=== PATIENT | female | born 1980 | race Caucasian/White ===

== ENCOUNTER 2021-12-25 17:24 | Outpatient (REF) | payer OTHER, SELFPAY ==
[2021-12-26 13:30] LABS: H Pylori Breath Test Positive (Negative)
== END 2021-12-25 17:25 | disposition home or self-care (01) ==
LOC: HO.LNP 17:24
PROVIDERS: Visit Provider Physician Assistant
DX: Z01.818 Encounter for other preprocedural examination (principal); E66.01 Morbid (severe) obesity due to excess calories
CPT/HCPCS: 83013

== ENCOUNTER 2022-01-13 07:51 | Outpatient (REF) | payer OTHER, SELFPAY ==
--- NOTE | ~2022-01-13 | XR_ITS ---
EXAMINATION: XR CHEST CLINICAL INFORMATION: Morbid obesity. COMPARISON: None TECHNIQUE: 2 views of the chest were obtained. FINDINGS: No significant abnormality is noted involving the heart, lungs, mediastinum, bony thorax or soft tissues. XR/XR chest 2V IMPRESSION: Unremarkable examination.
--- NOTE | 2022-01-13 08:09 | ECG_ITS ---
Test Reason : MORBID OBESITY Blood Pressure : / mmHG Vent. Rate : 064 BPM Atrial Rate : 064 BPM P-R Int : 156 ms QRS Dur : 092 ms QT Int : 430 ms P-R-T Axes : 054 018 002 degrees QTc Int : 443 ms Normal sinus rhythm Normal ECG No previous ECGs available Referred By: Pam Carr Electronically Signed By:ASHLEY PARIKH MD
[2022-01-13 08:53] LABS: Basophils Percent Auto 0.3 % (0-2); Eosinophils Absolute Auto 0.1 X10*3/uL (0.0-0.4); Eosinophils Percent Auto 0.8 % (0-4); Hematocrit 39.8 % (37.0-47.0); Hemoglobin 12.8 g/dl (12.0-16.0); Imm Gran Abs Auto 0.03 X10*3/uL (0.00-0.03); Imm Gran Pct Auto 0.5 % (0.0-0.4); Lymphocytes Absolute Auto 2.6 X10*3/uL (1.2-4.9); Lymphocytes Percent Auto 43.7 % (20-40); MANUAL DIFF FLAG SCAN; Mean Corpuscular HGB Conc 32.2 g/dl (31.0-35.0); Mean Corpuscular Hemoglobin 27.1 pg (27.0-33.0); Mean Corpuscular Volume 84.3 fL (80.0-98.0); Monocytes Absolute Auto 0.5 X10*3/uL (0.1-1.2); Monocytes Percent Auto 7.7 % (2-11); Neutrophils Absolute Auto 2.8 x10*3/uL (2.0-8.3); PLT CLUMP 1; Red Blood Count 4.72 X10*6/uL (4.20-5.50); Red Cell Distribution Width 13.2 % (11.0-16.0); SCAN SMEAR FLAG 1
[2022-01-13 08:57] LABS: Estimated Average Glucose 120 mg/dL; Hemoglobin A1c % 5.8 %
[2022-01-13 09:16] LABS: Platelet Count 209 X10*3/uL (160-400); SLIDE REVIEW VERIFIED
[2022-01-13 09:42] LABS: Alanine Aminotransferase 33 U/L (0-31); Albumin Level 4.5 g/dL (3.5-5.0); Alkaline Phosphatase 42 U/L (39-117); Anion Gap 12 (12-20); Aspartate Amino Transferase 26 U/L (5-31); Bilirubin Total 0.3 mg/dL (0.0-1.0); Blood Urea Nitrogen 14 mg/dL (9-16); C Reactive Protein 0.28 mg/dL (< or = 0.50); Calcium 9.3 mg/dL (8.4-10.2); Carbon Dioxide 26 mmol/L (22-29); Chloride 106 mmol/L (96-108); Cholesterol 157 mg/dL; Estimated Glomerular Filt Rate > 60; Ferritin 62 ng/mL (10-250); Glucose Random 95 mg/dL (60-115); HDL Cholesterol 29 mg/dL; Insulin 18 uU/mL (2-29); Iron 92 mcg/dL (30-160); LDL Cholesterol Calculated 102 mg/dl; Percent Iron Saturation 30 % (15-50); Potassium 4.5 mmol/L (3.3-5.1); Sodium 139 mmol/L (135-145); TSH reflex Free T4 0.86 uIU/mL (0.32-4.0); Total Iron Binding Capacity 303 mcg/dL (228-428); Total Protein 7.3 g/dL (6.5-8.0); Triglycerides 132 mg/dL; Unsaturated Iron Binding 211 ug/dL
[2022-01-13 09:52] LABS: Folate 14.5 ng/mL (> or = 4.0); Vitamin B12 573 pg/mL (200-900)
[2022-01-14 09:48] LABS: Calcium (PTHI) 9.3 mg/dL (8.6-10.2); PTHI 51 pg/mL (16-77)
[2022-01-17 05:59] LABS: Zinc 100 mcg/dL (60-130)
[2022-01-17 14:43] LABS: Vitamin A 38 mcg/dL (38-98)
[2022-01-18 12:54] LABS: Vitamin B1 <6 nmol/L (8-30)
== END 2022-01-13 07:52 | disposition home or self-care (01) ==
LOC: HO.XRAY 07:51
PROVIDERS: Visit Provider Physician Assistant
DX: Z01.818 Encounter for other preprocedural examination (principal); E66.01 Morbid (severe) obesity due to excess calories
CPT/HCPCS: 36415; 71046; 80053; 80061; 82306; 82607; 82728; 82746; 83036; 83525; 83540; 83970; 84425; 84443; 84590; 84630; 85025; 86140; 93005

== ENCOUNTER 2022-01-16 15:01 | Outpatient (REF) | payer OTHER, SELFPAY ==
[2022-01-17 15:27] LABS: H Pylori Breath Test Negative (Negative)
== END 2022-01-16 15:02 | disposition home or self-care (01) ==
LOC: HO.LNP 15:01
PROVIDERS: Visit Provider Physician Assistant Surgical
DX: E66.9 Obesity, unspecified (principal)
CPT/HCPCS: 83013

== ENCOUNTER → 2022-01-21 13:20 | Outpatient (BNVA) | payer OTHER, SELFPAY | PROVIDERS: Visit Provider Dietitian, Registered | DX: E66.01 Morbid (severe) obesity due to excess calories (principal) | CPT/HCPCS: 97802 ==

== ENCOUNTER → 2022-01-22 10:30 | Outpatient (BNVA) | payer OTHER, SELFPAY | PROVIDERS: Referring Provider Physician Assistant; Visit Provider Counselor Mental Health | DX: F33.0 Major depressive disorder, recurrent, mild (principal); E66.01 Morbid (severe) obesity due to excess calories | CPT/HCPCS: 90791 ==

== ENCOUNTER → 2022-02-05 10:30 | Outpatient (BNVA) | payer OTHER, SELFPAY | PROVIDERS: Visit Provider Physician Assistant | DX: I10 Essential (primary) hypertension (principal) ==

== ENCOUNTER 2022-02-12 08:45 | Outpatient (REF) | payer OTHER, SELFPAY ==
--- NOTE | ~2022-02-12 | FL_ITS ---
EXAMINATION: XR FLUOROSCOPY UPPER GI WITH AIR CLINICAL INFORMATION: Morbid/severe obesity due to excess calories. COMPARISON: None TECHNIQUE: Routine upper GI air-contrast study was performed in upright and lying position. FINDINGS: Following oral administration of thick barium and effervescent granules, there is normal propagation of bolus from the oral cavity through the pharynx, esophagus into stomach without any evidence of obstruction, narrowing or stricture. On placing patient supine and prone, the course, caliber and peristalsis of the stomach, duodenal bulb and the sweep is normal. The mucosal pattern of the stomach, duodenum bulb and the sweep is normal. FLUOROSCOPY TIME: 1.5 minutes DOSE AREA PRODUCT: 57.341 uGy-m2 (microgray-meter squared) FL/FL upper GI w air IMPRESSION: Unremarkable upper GI air-contrast study.
--- NOTE | ~2022-02-12 | US_ITS ---
EXAMINATION: US COMPLETE ABDOMEN WITH LIVER ELASTOGRAPHY CLINICAL INFORMATION: Morbid obesity. COMPARISON: None. TECHNIQUE: Real-time imaging of the abdominal viscera. Noninvasive ultrasound liver fibrosis assessment is performed using Britta ElastPQ point quantification shear wave elastography (2D-SWE) with a C5-2 MHz transducer. Multiple elastography samples are obtained. FINDINGS: PANCREAS: The visualized pancreatic head and body are normal in appearance. The tail of the pancreas is obscured from visualization by the overlying bowel gas. ABDOMINAL AORTA: The proximal, middle, and distal aortic segments are normal in caliber. INFERIOR VENA CAVA: Visualized portions are normal. LIVER: The liver demonstrates normal size, contour and increased echogenicity with fatty sparing adjacent to gallbladder. No focal lesion or intrahepatic biliary duct dilatation. The right lobe measures 18.5 cm in length. The left lobe measures 11.3 cm in length. Portal flow is hepatopedal. Shear wave liver elastography median stiffness is 1.79 m/s (reference: normal median stiffness is 1.3 m/s or less). IQR/median stiffness to assess sampling precision is 0.1 (reference: good quality data set is IQR/median stiffness of 0.15 or less). GALLBLADDER: Normal. The gallbladder is physiologically distended without evidence of stones, sludge, polyps, wall thickening or pericholecystic fluid. COMMON BILE DUCT: Normal in caliber measuring 0.4 cm in diameter. RIGHT KIDNEY: Normal. No hydronephrosis. No renal calculi or focal parenchymal lesions. The kidney measures 9.9 cm in maximum dimension. LEFT KIDNEY: There are echogenic calcified vessels. No hydronephrosis. No renal calculi or focal parenchymal lesions. The kidney measures 12.0 cm in maximum dimension. SPLEEN: Normal. The spleen measures 10.4 cm in maximum dimension. FREE FLUID: None. US/US abdomen comp w elastography IMPRESSION: 1. Hepatic steatosis with focal fatty sparing adjacent to gallbladder. 2. Liver elastography: Median liver stiffness measures 1.79 corresponding to cACLD (suggestive). REFERENCE: Society of Radiologists in Ultrasound Liver Stiffness Thresholds (2020): LIVER STIFFNESS THRESHOLDS: *Liver Stiffness equal or less than 1.3 m/s: High probability of being normal. *Liver Stiffness less than 1.7 m/s: In the absence of other known clinical signs, rules out compensated advanced chronic liver disease. *Liver Stiffness 1.7-2.1 m/s: Suggestive of compensated advanced chronic liver disease but need further test for confirmation. *Liver Stiffness over 2.1 m/s: Rules in compensated advanced chronic liver disease. *Liver Stiffness over 2.4 m/s: Suggestive of clinically significant portal hypertension. QUALITY OF DATA SET: *IQR/Median value equal or less than 0.15 implies a quality data set. *IQR/Median value over 0.15 implies a poor quality data set. SIGNIFICANT CHANGE FROM PRIOR EXAM: Significant change if liver stiffness measurement is 10% or greater from prior exam. OTHER CONSIDERATIONS: The stage of liver fibrosis may be overestimated in the setting of acute hepatitis, liver inflammation, elevated liver function tests, hepatic vascular congestion, obstructive cholestasis, non-fasting state, and infiltrative diseases such as amyloidosis and lymphoma. In some patients with NAFLD, the liver stiffness thresholds for compensated advanced chronic liver disease may be lower. In causes other than viral hepatitis and NAFLD, liver stiffness thresholds are not well established.
== END 2022-02-12 08:46 | disposition home or self-care (01) ==
LOC: HO.US 08:45
PROVIDERS: Visit Provider Physician Assistant
DX: Z01.818 Encounter for other preprocedural examination (principal); E66.01 Morbid (severe) obesity due to excess calories
CPT/HCPCS: 74246; 76705; 76981

== ENCOUNTER → 2022-02-26 11:15 | Outpatient (BNVA) | payer OTHER, SELFPAY | PROVIDERS: Visit Provider Counselor Mental Health | DX: F33.0 Major depressive disorder, recurrent, mild (principal); E66.01 Morbid (severe) obesity due to excess calories | CPT/HCPCS: 90832 ==

== ENCOUNTER → 2022-03-03 10:30 | Outpatient (BNVA) | payer OTHER, SELFPAY | PROVIDERS: Visit Provider Physician Assistant | DX: E66.01 Morbid (severe) obesity due to excess calories (principal) ==

== ENCOUNTER → 2022-03-14 07:56 | Outpatient (BNVA) | payer OTHER, SELFPAY | PROVIDERS: Visit Provider Physician Assistant Surgical | DX: Z13.89 Encounter for screening for other disorder (principal) ==

== ENCOUNTER → 2022-03-20 13:58 | Outpatient (BNVA) | payer OTHER, SELFPAY | PROVIDERS: Visit Provider Surgery | DX: Z13.89 Encounter for screening for other disorder (principal) ==

== ENCOUNTER → 2022-03-27 15:30 | Outpatient (BNVA) | payer OTHER, SELFPAY | PROVIDERS: Visit Provider Physician Assistant | DX: Z13.89 Encounter for screening for other disorder (principal) ==

== ENCOUNTER → 2022-03-28 12:43 | Outpatient (BNVA) | payer OTHER, SELFPAY | PROVIDERS: Visit Provider Surgery | DX: Z13.89 Encounter for screening for other disorder (principal) ==

== ENCOUNTER → 2022-04-01 08:06 | Outpatient (BNVA) | payer OTHER, SELFPAY | PROVIDERS: Visit Provider Surgery | DX: Z13.89 Encounter for screening for other disorder (principal) ==

== ENCOUNTER 2022-04-09 05:53 | Day surgery (SDC) | payer OTHER, SELFPAY ==
[2022-04-03 11:22] VITALS: BMI 48.8
[2022-04-04 07:35] LABS: MANUAL DIFF FLAG NO
[2022-04-04 07:54] LABS: Basophils Percent Auto 0.5 % (0-2); Eosinophils Absolute Auto 0.1 X10*3/uL (0.0-0.4); Eosinophils Percent Auto 0.9 % (0-4); Hematocrit 40.9 % (37.0-47.0); Hemoglobin 13.6 g/dl (12.0-16.0); Imm Gran Abs Auto 0.02 X10*3/uL (0.00-0.03); Imm Gran Pct Auto 0.3 % (0.0-0.4); Lymphocytes Absolute Auto 2.6 X10*3/uL (1.2-4.9); Lymphocytes Percent Auto 39.4 % (20-40); Mean Corpuscular HGB Conc 33.3 g/dl (31.0-35.0); Mean Corpuscular Hemoglobin 27.7 pg (27.0-33.0); Mean Corpuscular Volume 83.3 fL (80.0-98.0); Mean Platelet Volume 11.7 fL (9.4-12.3); Monocytes Absolute Auto 0.6 X10*3/uL (0.1-1.2); Monocytes Percent Auto 9.8 % (2-11); Neutrophils Absolute Auto 3.2 x10*3/uL (2.0-8.3); Neutrophils Percent Auto 49.1 % (45-73); Platelet Count 259 X10*3/uL (160-400); Red Blood Count 4.91 X10*6/uL (4.20-5.50); Red Cell Distribution Width 13.5 % (11.0-16.0); White Blood Count 6.5 X10*3/uL (4.8-10.8)
[2022-04-04 08:00] LABS: INTERNATIONAL NORM RATIO 1.1 (0.9-1.1); Prothrombin Time 13.1 SEC (10.0-13.1)
[2022-04-04 08:02] LABS: Partial Thromboplastin Time 33.1 SEC (26.0-36.4)
[2022-04-04 08:16] LABS: Estimated Average Glucose 108 mg/dL; Hemoglobin A1c % 5.4 %
[2022-04-04 08:21] LABS: Alanine Aminotransferase 29 U/L (0-31); Albumin Level 4.5 g/dL (3.5-5.0); Alkaline Phosphatase 48 U/L (39-117); Anion Gap 13 (12-20); Aspartate Amino Transferase 25 U/L (5-31); Bilirubin Total 0.5 mg/dL (0.0-1.0); Blood Urea Nitrogen 14 mg/dL (9-16); C Reactive Protein 0.57 mg/dL (< or = 0.50); Calcium 9.6 mg/dL (8.4-10.2); Carbon Dioxide 26 mmol/L (22-29); Chloride 105 mmol/L (96-108); Cholesterol 152 mg/dL; Creatinine Clr Calc Pharmacy 126.1; Estimated Glomerular Filt Rate > 60; Glucose Random 97 mg/dL (60-115); HDL Cholesterol 28 mg/dL; Iron 101 mcg/dL (30-160); LDL Cholesterol Calculated 103 mg/dl; Percent Iron Saturation 34 % (15-50); Potassium 4.1 mmol/L (3.3-5.1); Sodium 140 mmol/L (135-145); Total Iron Binding Capacity 300 mcg/dL (228-428); Total Protein 7.1 g/dL (6.5-8.0); Triglycerides 109 mg/dL; Unsaturated Iron Binding 199 ug/dL
[2022-04-04 08:45] LABS: Ferritin 58 ng/mL (10-250); TSH reflex Free T4 0.63 uIU/mL (0.32-4.0); Vitamin B12 716 pg/mL (200-900); Vitamin D 25-OH Total 34.8 ng/mL (>30)
[2022-04-07 18:19] LABS: Calcium (PTHI) 9.9 mg/dL (8.6-10.2); PTHI 30 pg/mL (16-77)
[2022-04-08 01:08] LABS: Zinc 102 mcg/dL (60-130)
--- NOTE | 2022-04-08 11:09 | P.CONAN_ITS ---
Documented by User: Usha Prasad NP 04/08/22 11:13 HPI - Anesthesia Eval Consult details Narrative: 41yo F for Gastrectomy Sleeve,possible diaphragmatic hernia,possible ventral hernia,possible open PMFSH Active Problems Active Problems: All Active Problems (Updated 04/03/22 @ 14:06 by Elizabeth Espino RN) Morbid obesity (Acute) HTN (hypertension), benign (Acute) Active asthma (Acute) Pre-op evaluation (Acute) Major depressive disorder, recurrent, mild (Acute) Past Medical History Medical History Carpal tunnel syndrome on both sides Murmur Family History Family History Mother Hypertension Diabetes Kidney disease Father No problems noted. Brother No problems noted. Sister Seizures Glaucoma Daughter Asthma Surgical History Surgical History History of carpal tunnel release History of wisdom tooth extraction Social History Social History Household Members Other:: daughter 11 Are you a primary clinical care leader to a significant other at home: Yes (daughter 11, grandmother will assist post-op) Do you presently have visiting nurse or other home services: No Alcohol intake: current Alcohol intake frequency: does not drink Patient Tobacco Use Status: Former Tobacco user Quit Date: 2015 Tobacco use type: Cigarette Use of substances other than those prescribed or required for medical reasons: No Have you been hit, kicked, punched, or otherwise hurt by someone within the past year? If so, by whom?: No Are you DNR?: No Advance Directives: No Advance Directives Information Provided: Yes Advance Directives on File: No Recently lost weight without trying: No Nutrition Risks: No Nutritional Risk Patient : No FDLMP: 03/14/2022 : No Poor oral hygiene: No Meds Allergies Allergy/AdvReac Type Severity Reaction Status Date / Time sulfate iron Allergy Severe hives Uncoded 04/03/22 11:21 Home Medications Medication Instructions Recorded Confirmed Last Taken Type albuterol sulfate 90 mcg/actuation 2 puff inhalation Q6H PRN 12/25/21 04/03/22 Unknown History aerosol inhaler Shortness Of Breath Or Wheezing amlodipine 5 mg-valsartan 160 1 tab PO DAILY 12/25/21 04/03/22 Unknown History mg-hydrochlorothiazide 25 mg tablet nifedipine 30 mg tablet,extended 30 mg PO DAILY 12/25/21 04/03/22 Unknown History release Exam Exam Date and Time: April 08, 2022 1109 Height,Weight and Vital Signs: Height 5 ft Weight 113.398 kg Pertinent Lab Results Pertinent Lab Results: Laboratory Tests 04/04/22 04/04/22 04/04/22 07:30 07:34 07:34 WBC 6.5 RBC 4.91 Hgb 13.6 Hct 40.9 MCV 83.3 MCH 27.7 MCHC 33.3 RDW 13.5 Plt Count 259 MPV 11.7 Immature Gran % (Auto) 0.3 Neut % (Auto) 49.1 Lymph % (Auto) 39.4 [place] % (Auto) 9.8 Eos % (Auto) 0.9 Baso % (Auto) 0.5 Lymph # (Auto) 2.6 [place] # (Auto) 0.6 Eos # (Auto) 0.1 Baso # (Auto) 0.0 Abs Immat Gran (auto) 0.02 Absolute Neuts (auto) 3.2 Absolute Nucleated RBC 0.000 Nucleated RBC % (auto) 0.0 PT 13.1 INR 1.1 APTT 33.1 Sodium Potassium Chloride Carbon Dioxide Anion Gap BUN Creatinine Estim Creat Clear Calc Estimated GFR Random Glucose Estimat Average Glucose Hemoglobin A1c % Calcium Iron TIBC % Saturation Unsat Iron Binding Ferritin Total Bilirubin AST ALT Alkaline Phosphatase C-Reactive Protein Total Protein Albumin Triglycerides Cholesterol LDL Cholesterol, Calc HDL Cholesterol Vitamin B12 25-OH Vitamin D Total TSH PTH Intact Calcium (PTH Intact) Zinc Blood Type A Positive Antibody Screen NEGATIVE 04/04/22 04/04/22 04/04/22 07:34 07:34 07:34 WBC RBC Hgb Hct MCV MCH MCHC RDW Plt Count MPV Immature Gran % (Auto) Neut % (Auto) Lymph % (Auto) [place] % (Auto) Eos % (Auto) Baso % (Auto) Lymph # (Auto) [place] # (Auto) Eos # (Auto) Baso # (Auto) Abs Immat Gran (auto) Absolute Neuts (auto) Absolute Nucleated RBC Nucleated RBC % (auto) PT INR APTT Sodium 140 Potassium 4.1 Chloride 105 Carbon Dioxide 26 Anion Gap 13 BUN 14 Creatinine 0.68 Estim Creat Clear Calc 126.1 Estimated GFR > 60 Random Glucose 97 Estimat Average Glucose 108 Hemoglobin A1c % 5.4 Calcium 9.6 Iron 101 TIBC 300 % Saturation 34 Unsat Iron Binding 199 Ferritin 58 Total Bilirubin 0.5 AST 25 ALT 29 Alkaline Phosphatase 48 C-Reactive Protein 0.57 H Total Protein 7.1 Albumin 4.5 Triglycerides 109 Cholesterol 152 LDL Cholesterol, Calc 103 HDL Cholesterol 28 Vitamin B12 716 25-OH Vitamin D Total 34.8 TSH 0.63 PTH Intact 30 Calcium (PTH Intact) 9.9 Zinc Blood Type Antibody Screen 04/04/22 07:34 WBC RBC Hgb Hct MCV MCH MCHC RDW Plt Count MPV Immature Gran % (Auto) Neut % (Auto) Lymph % (Auto) [place] % (Auto) Eos % (Auto) Baso % (Auto) Lymph # (Auto) [place] # (Auto) Eos # (Auto) Baso # (Auto) Abs Immat Gran (auto) Absolute Neuts (auto) Absolute Nucleated RBC Nucleated RBC % (auto) PT INR APTT Sodium Potassium Chloride Carbon Dioxide Anion Gap BUN Creatinine Estim Creat Clear Calc Estimated GFR Random Glucose Estimat Average Glucose Hemoglobin A1c % Calcium Iron TIBC % Saturation Unsat Iron Binding Ferritin Total Bilirubin AST ALT Alkaline Phosphatase C-Reactive Protein Total Protein Albumin Triglycerides Cholesterol LDL Cholesterol, Calc HDL Cholesterol Vitamin B12 25-OH Vitamin D Total TSH PTH Intact Calcium (PTH Intact) Zinc 102 Blood Type Antibody Screen Narrative Narrative: EKG 01/2022 Vent. Rate : 064 BPM ? ? Atrial Rate : 064 BPM ?? P-R Int : 156 ms? QRS Dur : 092 ms ? ? QT Int : 430 ms ? ? ? P-R-T Axes : 054 018 002 degrees ?? QTc Int : 443 ms ? Normal sinus rhythm Normal ECG No previous ECGs available Assessment and Plan Assessment Anesthesia Assessment: Chart Reviewed Documented by User: Jasmina Mckeon MD 04/09/22 07:36 [facility] Past Medical History Medical History Carpal tunnel syndrome on both sides Murmur Family History Family History Mother Hypertension Diabetes Kidney disease Father No problems noted. Brother No problems noted. Sister Seizures Glaucoma Daughter Asthma Surgical History Surgical History History of carpal tunnel release History of wisdom tooth extraction History of Problems with Anesthesia: No Social History Social History Household Members Other:: daughter 11 Are you a primary clinical care leader to a significant other at home: Yes (daughter 11, grandmother will assist post-op) Do you presently have visiting nurse or other home services: No Alcohol intake: current Alcohol intake frequency: does not drink Patient Tobacco Use Status: Former Tobacco user Quit Date: 2015 Tobacco use type: Cigarette Use of substances other than those prescribed or required for medical reasons: No Have you been hit, kicked, punched, or otherwise hurt by someone within the past year? If so, by whom?: No Are you DNR?: No Advance Directives: No Advance Directives Information Provided: Yes Advance Directives on File: No Recently lost weight without trying: No Nutrition Risks: No Nutritional Risk Patient : No FDLMP: 03/14/2022 : No Poor oral hygiene: No Meds Allergies Allergy/AdvReac Type Severity Reaction Status Date / Time sulfate iron Allergy Severe hives Uncoded 04/03/22 11:21 Home Medications Medication Instructions Recorded Confirmed Last Taken Type albuterol sulfate 90 mcg/actuation 2 puff inhalation Q6H PRN 12/25/21 04/03/22 Unknown History aerosol inhaler Shortness Of Breath Or Wheezing amlodipine 5 mg-valsartan 160 1 tab PO DAILY 12/25/21 04/03/22 Unknown History mg-hydrochlorothiazide 25 mg tablet nifedipine 30 mg tablet,extended 30 mg PO DAILY 12/25/21 04/03/22 Unknown History release Exam Airway Mallampati Class: II TM Dist: >3cm Neck ROM: Full Loose/Missing/Broken Teeth: No Heart: RRR Lungs: CTA Assessment and Plan Assessment Anesthesia Assessment: Anesthesia Plan Discussed Final Anesthetic Review History of Problems with Anesthesia: No NPO: Yes ASA Class: III Final Preanesthetic Review: Meds/Allgs Chart Reviewed, Consent Obtained/Reviewed and Anes Risks/Benef Reviewed Patient Risk: Intermediate Procedure Risk: Intermediate Anesthetic Plan Anesthetic Plan: GA Disposition: Standard PACU
[2022-04-08 11:32] LABS: COVID-19 Test Negative (Negative); IDNOW Serial# BCCEAD1C
[2022-04-09] VITALS (15 sets, daily range): BP systolic 120–179; BP diastolic 60–95; PULSE 63–96; RESP 16–30; TEMP 36.4–37.7; O2SAT 95–99
[2022-04-09] MEDS: Lactated Ringers 1,000 ML 150 ML IVCONT ×2 (05:56→11:29)
[2022-04-09 06:19] LABS: UPreg QC Valid YES; Urine Pregnancy NEGATIVE (NEGATIVE)
--- NOTE | 2022-04-09 06:59 | PC.NURSE ---
IV attempt by author. Attempt and insertion by Jeanie Herring RN
--- NOTE | 2022-04-09 07:10 | PC.NURSE ---
Dr. Rodriguez updated that patient has closed cyst like area to fold of lower right abdomen. patient stated attempted to pop it earlier this week. Dr. Rodriguez assessed patient and okay to proceed.
[2022-04-09] MEDS: Scopolamine 1.5 MG PATCH.TD.3 TRANSDERMA (07:25)
--- NOTE | 2022-04-09 07:25 | MHC.SHP ---
Pre-Procedural Eval Section A Date of Service: 04/09/22 The patient is an INPATIENT: Yes Changes since office visit: No Cold of Flu in the past 2 weeks, No New Medical Problems, No Changes in Medication and No Patient answered all questions The History & Physical has been completed within 30 days and I have reviewed it.: Yes Section B Chief Complaint: s/p sleeve gastrectomy Allergies: Allergies Allergy/AdvReac Type Severity Reaction Status Date / Time sulfate iron Allergy Severe hives Uncoded 04/03/22 11:21 Plan I have reviewed the history and physical and performed a pertinent physical examination on my patient. No changes have occurred unless specified. Time Spent With Patient Time: Total time managing care of this patient today ____ minutes.
[2022-04-09 09:53] LABS: Vitamin A 38 mcg/dL (38-98)
--- NOTE | 2022-04-09 10:20 | P.OP_ITS ---
Operative Note Operative Note Date of Service: 04/09/22 Narrative: Preop diagnosis: [Obesity, hypertension, MAHER] Postop diagnosis: [Same] Procedure: [Laparoscopic sleeve gastrectomy, intraoperative upper endoscopy, gastropexy] Surgeon: Jeferson Rodriguez MD Assist: [Pam Carr PA-C] Anesthesia: [General endotracheal, bupivacaine, 0.5 % with epi] Estimated blood loss: [10cc] Specimen: [Portion of stomach with fundus] Intraoperative findings: [Grossly normal stomach; MAHER] Indications: [The patient is a 41-year-old woman with a lifelong struggle with obesity who presented to the surgical weight loss program at [facility] with a BMI of 57.3 and a weight of 293.6 lb. In addition to hypertension and MAHER, her comorbidities include asthma and depression. After discussion of options and demonstration of affective preoperative weight loss dropping her BMI to 48.9/weight of 250.6 lb, discussion regarding continued medical weight loss, surgical weight loss including gastric bypass and sleeve gastrectomy was undertaken. Patient seemed understand her options and wanted to proceed with sleeve gastrectomy. We had a detailed discussion of the inherent risks of this procedure which include, but are not limited to: Bleeding that could require another operation or blood transfusion; the inherent risks of transfusion reaction infectious disease from blood transfusions; the risk of staple line leaks that could cause sepsis, multi-system organ failure and ; the risk of mesenteric or deep vein thrombosis of the lower extremities that could cause a fatal pulmonary embolism was reviewed; the risk of GERD that could require conversion to gastric bypass was discussed; the risk of recurrent hiatal hernia, especially in the setting of weight regain was reviewed. The risk of weight regain if maladaptive eating and sedentary behavior continue was discussed. The importance of proper diet and increased activity to augment surgical weight loss and the fact that no operation would result in weight loss of poor dietary decisions and sedentary behavior are resumed were discussed at length and apparently understood. The patient had the option of having a insole stiffener present and declined this option.] Procedure: [The patient was identified in the preoperative holding area by myself and again in the operating suite by myself and the team. Patient was placed supine on the operating table. Safety straps were utilized and a footboard utilized. The patient was induced in general endotracheal anesthesia administered with excellent effect. An appropriate time-out was performed. The patient's abdomen was then widely prepped and draped in the usual manner for surgery using chlorprep. 2 g of IV Ancef were administered by Anesthesia. After infiltrating preemptive local in the skin and subcutaneous tissues in the epigastrium approximately 10cm from the xiphoid and the midline of the epigastrium, a stab incision was made sharply in the left subcostal abdomen and the Veress needle inserted without incident. An appropriate drop test was performed then a pneumoperitoneum of 15 mmHg was obtained using carbon dioxide. Opening pressures were 7 mmHg. Next, a 5 mm 0 degree scope over a 5 mm Optiview trocar was used to access the abdomen via the epigastric incision in the midline. Once the abdomen was entered, the the trocar obturator was removed and the laparoscope was used to confirm there was no injury from the Veress needle nor trocar insertion injury to the bowel or mesentery, then the scope was switched to a 5 mm 45 degree laparoscope. Next, using preemptive local, additional 5 mm trocars were placed under direct laparoscopic vision on the patient's left abdomen, then right and the 5 mm midline trocar upsized to a 12 mm to accommodate the stapler. The patient was then positioned in reverse Trendelenburg and the liver retractor deployed through the right lateral 5 mm trocar and secured. A 40 [place] ViSiGi bougie was inserted by Anesthesia per os and advanced to the stomach to decompress. It was then withdrawn to the GE junction all under direct laparoscopic vision. Dissection was begun along the greater curvature using the 5 mm [place] LigaSure for hemostasis and continued to the left froy of the diaphragm. Dissection was then carried towards the pylorus to 3-4 cm from the pylorus and retro gastric adhesions lysed. The gastroesophageal fat pad was carefully mobilized taking care to avoid injury to the esophagus and stomach and dissection carried towards the short gastrics taking care to avoid injury to the spleen and splenic artery. The diaphragmatic hiatus was carefully examined for a hernia. Next, the 40 Fr ViSiGi bougie was advanced by anesthesia under direct vision and laparoscopic guidance and positioned in the antrum approximately 3 cm from the pylorus using laparoscopic graspers to serve as a guide for a stapled sleeve gastrectomy. Stapling was performed with Toutiao- VICKEY stapler with a purple 45 and then orange 45 and 60 loads. The bougie served as a guide to maintain the same sleeve caliber to avoid stricture & sleeve distortion. The 10 mm clip sail maker was used to apply additional clips to the staple line. Care was taken to be sure that the sleeve laid flat and was with out stricture. Once the sleeve was complete, the portion of stomach was placed in the lower abdomen to be sent for permanent section. The staple line, gastrocolic omentum, spleen and short gastric areas were all inspected for hemostasis which was found to be good. The ViSiGi bougie used for a leak test by reducing the reverse Trendelenburg and instilling sterile saline. Anesthesia that ran of O2 at 1 L per minute via the tube and no bubbles were demonstrated from the staple line. Next, the bougie was withdrawn under laparoscopic vision used to suction the esophagus and hypopharynx and then discarded. Next, I broke scrub perform an on-table upper endoscopy to assess the sleeve and the esophagus and stomach. The patient was returned to neutral position and the Olympus 160 gastroscope was advanced taking care to preserve the endotracheal tube. The esophagus was intubated without incident. Minimal air was insufflated and the scope advanced into the newly formed sleeve. The staple line was inspected for hemostasis and the morphology of the sleeve appeared straight with a uniform diameter. Intraoperatively, there was no evidence of staple line leak seen during laparoscopy as air was insufflated via endoscope. The scope was then used to aspirate the air from the sleeve withdrawn and removed. I then rescrubbed to return to the operative field and again inspected the field for hemostasis. The patient was again placed in reverse Trendelenburg. A gastropexy was performed using 2-0 Polysorb suture to secure the sleeve gastrectomy to the gastrocolic omentum. After final assessment for hemostasis, the patient was returned to neutral position, a Dhiraj used to withdraw the stomach which was sent for permanent section. The fascia of the 12 mm midline was closed using an 0 Polysorb on a suture Passer under direct laparoscopic vision. The abdomen was then deflated and all trocars removed. The suture was then tied and the skin closed with 4-0 Monocryl subcuticular sutures. The abdomen was then washed and dried, benzoin and Steri-Strips applied followed by Band-Aids. The patient tolerated the procedure well was then extubated the recover in stable condition. All sponge needle and instrument counts were correct x2. At the patient's request, I contacted her mother Paula, by telephone at [phone] to apprise her of the operation. Her questions seemed to be satisfactorily answered.]
--- NOTE | 2022-04-09 10:46 | PM.DS ---
DS: Providers Provider Date of Service: 04/10/22 Date of admission: 04/09/22 05:53 Primary care physician: Unknown Physician DS: Summary Time Spent with Patient Time attestation: Total time managing care of this patient today ____ minutes. Discharge coordination time: Less than 30 minutes Quality: Safe Use of Opioids Does Pt have an Active Cancer Diagnosis on the Problem List?: No Quality: Stroke Does the patient have a stroke diagnosis?: No Physical Exam Vital Signs: Vital Signs: Last Vital Signs Temp 97.8 F 04/09/22 06:14 Pulse 83 04/09/22 06:14 Resp 18 04/09/22 06:14 BP 121/61 04/09/22 06:14 Pulse Ox 99 04/09/22 06:14 O2 Del Method 04/09/22 06:14 BMI result Body Mass Index 48.8 DS: Data Data Completed and Pending Pending studies at discharge: Pending at discharge 04/09/22 09:47 Surgical [PTH] Routine Labs on day of discharge: Laboratory Results - last 24 hr 04/04/22 04/08/22 04/09/22 07:34 11:08 06:00 Vitamin A 38 Urine Test NEGATIVE COVID-19 (EMILIE) Negative COVID-19 Clin Com See Note
[2022-04-09] MEDS: HYDROmorphone HCl 0.5 MG/0.5 ML SYRINGE 0.25 MG IVPUSH ×5 (11:01→15:17)
[2022-04-09 11:24] LABS: Hematocrit 40.3 % (37.0-47.0); Hemoglobin 13.1 g/dl (12.0-16.0)
[2022-04-09] MEDS: Famotidine/PF 20 MG in 0.9 % Sodium Chloride 50 ML 200 MG IV (11:26)
[2022-04-09 11:28] LABS: Anion Gap 15 (12-20); Blood Urea Nitrogen 10 mg/dL (9-16); Carbon Dioxide 22 mmol/L (22-29); Chloride 105 mmol/L (96-108); Estimated Glomerular Filt Rate > 60; Glucose Random 146 mg/dL (60-115); Potassium 4.8 mmol/L (3.3-5.1); Sodium 137 mmol/L (135-145)
[2022-04-09] MEDS: ceFAZolin Sodium/Dextrose,Iso 2 GM/50 ML PIGGYBACK IV (13:05)
--- NOTE | 2022-04-09 13:26 | PHA.MEDREC ---
Pharmacy Consult ? Medication Reconciliation Pharmacy has reviewed the medication reconciliation completed by nursing. Patient is not on [id number] at home. She is lisinopril 20mg - HCTZ 25 mg. Pam VINES was informed on the change, and the order for amlodipine 5 mg was adjusted to lisinopril 20 mg. Suellen Curtis, PharmD
[2022-04-09] MEDS: lisinopriL 20 MG TABLET PO (14:19)
[2022-04-09] MEDS: Acetaminophen 1,000 MG/100 ML PIGGYBACK 16.7 MG IV ×2 (14:19→19:17)
[2022-04-09] MEDS: ondansetron HCL 4 MG/2 ML VIAL IVPUSH (17:00)
[2022-04-09] MEDS: Famotidine/PF 20 MG/2 ML VIAL IVPUSH (19:17)
[2022-04-09] MEDS: Lactated Ringers 1,000 ML 100 ML IVCONT (22:13)
[2022-04-09] MEDS: Metoclopramide HCl 10 MG/2 ML VIAL IVPUSH (22:31)
[2022-04-10] MEDS: Acetaminophen 1,000 MG/100 ML PIGGYBACK 16.7 MG IV (01:16)
[2022-04-10] MEDS: ondansetron HCL 4 MG/2 ML VIAL IVPUSH (01:16)
[2022-04-10 01:19] VITALS: TEMP 36.8
[2022-04-10] MEDS: HYDROmorphone HCl 0.5 MG/0.5 ML SYRINGE 0.25 MG IVPUSH (04:05)
[2022-04-10 04:14] VITALS: BP 144/64; PULSE 58; RESP 20; TEMP 36.7; O2SAT 95
[2022-04-10 06:00] LABS: MANUAL DIFF FLAG NO
[2022-04-10 06:13] LABS: Basophils Percent Auto 0.1 % (0-2); Hematocrit 36.7 % (37.0-47.0); Hemoglobin 12.3 g/dl (12.0-16.0); Imm Gran Abs Auto 0.07 X10*3/uL (0.00-0.03); Imm Gran Pct Auto 0.6 % (0.0-0.4); Lymphocytes Percent Auto 16.2 % (20-40); Mean Corpuscular HGB Conc 33.5 g/dl (31.0-35.0); Mean Corpuscular Hemoglobin 27.9 pg (27.0-33.0); Mean Corpuscular Volume 83.2 fL (80.0-98.0); Mean Platelet Volume 12.9 fL (9.4-12.3); Monocytes Absolute Auto 0.9 X10*3/uL (0.1-1.2); Monocytes Percent Auto 7.4 % (2-11); Neutrophils Absolute Auto 9.6 x10*3/uL (2.0-8.3); Neutrophils Percent Auto 75.7 % (45-73); Platelet Count 228 X10*3/uL (160-400); Red Blood Count 4.41 X10*6/uL (4.20-5.50); Red Cell Distribution Width 13.4 % (11.0-16.0); White Blood Count 12.6 X10*3/uL (4.8-10.8)
[2022-04-10 06:33] LABS: Anion Gap 15 (12-20); Blood Urea Nitrogen 4 mg/dL (9-16); Calcium 8.6 mg/dL (8.4-10.2); Carbon Dioxide 20 mmol/L (22-29); Chloride 106 mmol/L (96-108); Creatinine Clr Calc Pharmacy 150.5; Estimated Glomerular Filt Rate > 60; Glucose Random 84 mg/dL (60-115); Sodium 137 mmol/L (135-145)
--- NOTE | 2022-04-10 07:00 | P.PNGS_ITS ---
Subjective Subjective Date of Service: 04/10/22 Patient reports: no new complaints and feels better Interval history: Patient denies any nausea, vomiting, odynophagia, hematemesis and is tolerating sips well. She is anxious for discharge. Physical Exam Vital Signs: Vital Signs: Last Vital Signs Temp 98.1 F 04/10/22 04:14 Pulse 58 04/10/22 04:14 Resp 20 04/10/22 04:14 BP 144/64 H 04/10/22 04:14 Pulse Ox 95 04/10/22 04:14 O2 Del Method 04/10/22 04:14 O2 Flow Rate 2 04/09/22 12:16 BMI result Body Mass Index 48.8 On exam she is in good spirits She is nontoxic She has no respiratory distress Abdominal binder and dressings are intact Objective Data Active Medications Albuterol Sulfate (Albuterol Sulfate (0.083%) 2.5 Mg/3 Ml Vial.Neb) 2.5 mg INHALE ONCE PRN PRN Reason: Shortness of Breath/Wheezing Albuterol Sulfate (Albuterol Sulfate (0.083%) 2.5 Mg/3 Ml Vial.Neb) 2.5 mg INHALE ONCE PRN PRN Reason: Wheezing Albuterol Sulfate (Albuterol Sulfate 90 Mcg 8 Gm Inhaler) 2 puff INHALE Q6H PRN PRN Reason: Shortness Of Breath Or Wheezing Famotidine (Famotidine/Pf 20 Mg/2 Ml Vial) 20 mg IVPUSH BID GUILLE Last Admin: 04/09/22 19:17 Dose: 20 mg Documented By: FIORELLA Fentanyl (Fentanyl Citrate/Pf 100 Mcg/2 Ml Vial) 50 mcg IVPUSH Q5M PRN; Protocol PRN Reason: Pain, Severe (Pain Scale 7-10) Fentanyl (Fentanyl Citrate/Pf 100 Mcg/2 Ml Vial) 25 mcg IVPUSH Q5M PRN; Protocol PRN Reason: Pain, Moderate (Pain Scale 4-6 Hydromorphone HCl (Hydromorphone Hcl 0.5 Mg/0.5 Ml Syringe) 0.25 mg IVPUSH Q4H PRN; Protocol PRN Reason: Pain, Moderate (Pain Scale 4-6 Last Admin: 04/10/22 04:05 Dose: 0.25 mg Documented By: FIORELLA Lactated Ringer's (Lr) 1,000 mls @ 100 mls/hr IVCONT .Q10H [facility] Last Admin: 04/09/22 22:13 Dose: 100 mls/hr Documented By: FIORELLA Acetaminophen (Ofirmev) 1,000 mg in 100 mls @ 16.7 mls/hr IV .Q6H [facility] Last Admin: 04/10/22 01:16 Dose: 16.7 mls/hr Documented By: FIORELLA Lisinopril (Lisinopril 20 Mg Tablet) 20 mg PO DAILY [facility]; Protocol Last Admin: 04/09/22 14:19 Dose: 20 mg Documented By: CAMRON Metoclopramide HCl (Metoclopramide Hcl 10 Mg/2 Ml Vial) 10 mg IVPUSH Q6H PRN PRN Reason: Nausea Last Admin: 04/09/22 22:31 Dose: 10 mg Documented By: FIORELLA Nifedipine (Nifedipine Er 30 Mg Tab.Er.24) 30 mg PO DAILY [facility] Ondansetron HCl (Ondansetron Hcl 4 Mg/2 Ml Vial) 4 mg IVPUSH ONCE PRN PRN Reason: Nausea and Vomiting Ondansetron HCl (Ondansetron Hcl 4 Mg/2 Ml Vial) 4 mg IVPUSH Q8H [facility] Last Admin: 04/10/22 01:16 Dose: 4 mg Documented By: FIORELLA Oxycodone HCl (Oxycodone Hcl Immed Release 5 Mg Tablet) 5 mg PO ONCE PRN PRN Reason: Pain, Severe (Pain Scale 7-10) Sodium Chloride (0.9 % Sodium Chloride Flush 3 Ml Syringe) 3 ml IVFLUSH QSHIFT [facility] Last Admin: 04/09/22 20:57 Dose: Not Given Documented By: FIORELLA Non-Admin Reason: IV Running Labs 04/10/22 05:09 04/10/22 05:09 Labs: Laboratory Results - last 24 hr 04/04/22 04/09/22 04/10/22 07:34 11:03 05:09 MCV 83.2 MCH 27.9 MCHC 33.5 RDW 13.4 Plt Count 228 MPV 12.9 H Immature Gran % (Auto) 0.6 H Neut % (Auto) 75.7 H Lymph % (Auto) 16.2 L [place] % (Auto) 7.4 Eos % (Auto) 0.0 Baso % (Auto) 0.1 Lymph # (Auto) 2.0 [place] # (Auto) 0.9 Eos # (Auto) 0.0 Baso # (Auto) 0.0 Abs Immat Gran (auto) 0.07 H Absolute Neuts (auto) 9.6 H Absolute Nucleated RBC 0.000 Nucleated RBC % (auto) 0.0 Anion Gap 15 Estim Creat Clear Calc 134.0 Estimated GFR > 60 Random Glucose 146 H Calcium 9.0 D Vitamin A 38 04/10/22 05:09 MCV MCH MCHC RDW Plt Count MPV Immature Gran % (Auto) Neut % (Auto) Lymph % (Auto) [place] % (Auto) Eos % (Auto) Baso % (Auto) Lymph # (Auto) [place] # (Auto) Eos # (Auto) Baso # (Auto) Abs Immat Gran (auto) Absolute Neuts (auto) Absolute Nucleated RBC Nucleated RBC % (auto) Anion Gap 15 Estim Creat Clear Calc 150.5 Estimated GFR > 60 Random Glucose 84 Calcium 8.6 Vitamin A Procedures Date of Service Date of Service: 04/10/22 Progress Note: A&P Assessment and plan (1) S/P laparoscopic sleeve gastrectomy: Status: Acute (2) Morbid obesity: Status: Acute (3) HTN (hypertension), benign: Status: Acute (4) Active asthma: Status: Acute (5) Major depressive disorder, recurrent, mild: Status: Acute Plan Evaluate for discharge this morning PA will evaluate patient and provide dietary instructions in writing prior to discharge. Time Spent With Patient Time: Total time managing care of this patient today ____ minutes. Quality Stroke Does the patient have a stroke diagnosis?: No VTE Prior VTE?: No VTE Risk Level:: Surgical - moderate VTE Device Contraindication: N/A - Device Ordered VTE Drug Contraindication: Treatment Not Indicated
[2022-04-10 07:10] VITALS: BP 145/65; PULSE 51; RESP 19; TEMP 37.1; O2SAT 97
[2022-04-10 07:12] VITALS: O2SAT 97
[2022-04-10] MEDS: NIFEdipine ER 30 MG TAB.ER.24 PO (07:57)
[2022-04-10] MEDS: lisinopriL 20 MG TABLET PO (07:57)
[2022-04-10] MEDS: Famotidine/PF 20 MG/2 ML VIAL IVPUSH (07:58)
--- NOTE | 2022-04-10 13:56 | HO.POSTANES ---
Post Anesthesia Evaluation Post Anesthesia Evaluation Vital Signs: Vital Signs Temp Pulse Resp BP Pulse Ox O2 Del Method 04/10/22 07:10 98.8 F 51 19 145/65 H 97 Room Air 04/10/22 07:12 97 Room Air 04/10/22 04:14 98.1 F 58 20 144/64 H 95 Room Air Anesthesia: General Endotracheal-GETA Mental Status: Awake Pain Control: Satisfactory Nausea/Vomiting: None Hydration: Adequate Anesthesia-Related Issues: No Anes. Related Issues
--- NOTE | 2022-04-10 16:17 | MHC.CM.PN ---
CM ATTEMPTED TO MEET W/PT HOWEVER PT ALREADY DISCHARGED FROM UNIT, NO SERVICES ORDERED AND NO IMM REQUIRED D/T INSURANCE.
[2022-04-10 16:38] LABS: Vitamin B1 <6 nmol/L (8-30)
== END 2022-04-10 09:19 | disposition home or self-care (01) ==
LOC: HO.SSSA 10:46 → HO.SSS 04-10 07:36 → HO.S3 04-10 07:36
PROVIDERS: Anesthesiology; Physician Assistant; Physician Assistant Surgical; Visit Provider Surgery
PROC: (CPT 43845; principal; 2022-04-09 07:30)
DX: E66.01 Morbid (severe) obesity due to excess calories (principal); Z68.42 Body mass index [BMI] 45.0-49.9, adult; K75.81 Nonalcoholic steatohepatitis (NASH); I10 Essential (primary) hypertension; J45.909 Unspecified asthma, uncomplicated; Z83.3 Family history of diabetes mellitus; F33.0 Major depressive disorder, recurrent, mild; Z20.822 Contact with and (suspected) exposure to COVID-19; Z79.899 Other long term (current) drug therapy; Z88.8 Allergy status to other drugs, medicaments and biological substances; Z87.891 Personal history of nicotine dependence
CPT/HCPCS: 43775; 43659; 36415; 80048; 80053; 80061; 81025; 82306; 82607; 82728; 83036; 83540; 83970; 84425; 84443; 84590; 84630; 85014; 85018; 85025; 85610; 85730; 86140; 86850; 86900; 86901; 87635; 88307; 88342; C9088; J0131; J0690; J1100; J1170; J2250; J2370; J2405; J2765; J3010

== ENCOUNTER → 2022-04-16 08:35 | Outpatient (BNVA) | payer OTHER, SELFPAY | PROVIDERS: Visit Provider Physician Assistant | DX: Z13.89 Encounter for screening for other disorder (principal) ==

== ENCOUNTER → 2022-05-08 10:12 | Outpatient (BNVA) | payer OTHER, SELFPAY | PROVIDERS: PCP Student in an Organized Health Care Education/Training Program; Visit Provider Physician Assistant | DX: Z13.89 Encounter for screening for other disorder (principal) ==

== ENCOUNTER → 2022-05-23 10:35 | Outpatient (BNVA) | payer OTHER, SELFPAY | PROVIDERS: PCP Student in an Organized Health Care Education/Training Program; Visit Provider Physician Assistant | DX: Z13.89 Encounter for screening for other disorder (principal) ==

== ENCOUNTER → 2022-07-21 10:30 | Outpatient (BNVA) | payer OTHER, SELFPAY | PROVIDERS: PCP Student in an Organized Health Care Education/Training Program; Visit Provider Physician Assistant ==

== ENCOUNTER 2023-01-21 10:30 | Outpatient (AMB) | payer OTHER, SELFPAY ==
--- NOTE | 2023-01-21 09:37 | A.OFFVIS_ITS ---
Intake VS Expanded 01/21/23 10:33 Height 5 ft Weight 172 lb BMI 33.6 Intake Visit Reasons: VIDEO PO LSG 04/09/22 Allergies sulfate iron Allergy (Severe, Uncoded 04/03/22 11:21) hives Medication List - Last Reconciled 01/21/23 by Pam Carr PA-C calcium citrate-vitamin D3 500 mg-12.5 mcg (500 unit) tabs PO hydrochlorothiazide 25 mg PO DAILY inulin (Fiber Gummies) 4 grams PO DAILY [id number]-FA-vit K 45 mg iron- 800 mcg-120 mcg (Bariatric Multivitamins) caps PO HPI HPI Comments History of Present Illness Details 42 yo woman now 9 months post op LSG, la st appt in July at 3 months post op weight ows 204 lbs. [employer]PUT[employer] weight was 293.4 lbs. At her last appt she was not following a healthy meal or exercise program and was supposed to have follow up with me in 3 weeks. She has not had any post op labs either. States wants refill of HCTZ, has BP cuff at home and will check tomorrow morning. She states she has not had appts due to her boyfriend committed suicide in August. Meal plan: 7:30 am - coffee - with unsweetened crea sd 11 am - Premier RTD shake protein yogurt 2/ week 5pm - 4 - 5 chicken or fish and 4 days has vegetables 1 oz vegetable - cooked green vegetables Exercise - 5 d/ week - 45 minutes treadmill or elliptical - [address] ful l body -5 d/week [facility] Medical History Murmur Major depressive disorder, recurrent, mild Pre-op evaluation Morbid obesity Carpal tunnel syndrome on both sides Surgical History History of carpal tunnel release History of wisdom tooth extraction Family History Mother Hypertension Diabetes Kidney disease Father No problems noted. Brother No problems noted. Sister Seizures Glaucoma Daughter Asthma Social History Household Members: Family Household Members Other:: daughter 11 Housing: Apartment Are you a primary care assistant to a significant other at home: Yes (daughter 11, grandmother will assist post-op) Do you presently have visiting nurse or other home services: No Alcohol intake: former Patient Tobacco Use Status: Former Tobacco user Quit Date: 2015 Tobacco use type: Cigarette Assessment & Plan Assessment & Plan (1) Obesity: Code(s): E66.9 - Obesity, unspecified Plan: 9 months post op with 121.4 lbs TBWL - 41%. Inadequate meal plan. She has agreed to the followin grams protien per day 11 am - Premeir shake over 45 minutes 2 -3 pm- shake 6pm - 2 oz lean protien, 2 oz vegetables (raw or cooked), 1 oz fruit No changes to exercise program. Will get post op labs drawn this week, will send me BP reading in am. Most likely will not need refill on HCTZ. Appt with Leilani in 3 weeks, in 6 weeks and Mendy now. Patient is still obese and is not considered stable at this time. I spent 28 m inutes in total speaking with the patient via video conference counseling , reviewing records and charting in patients chart. . (2) S/P laparoscopic sleeve gastrectomy: Code(s): Z98.84 - Bariatric surgery status (3) HTN (hypertension), benign: Code(s): I10 - Essential (primary) hypertension Plan: will send me BP in am readings. Plan see above Orders: Orders Lipid Panel Today E66.9 - Obesity, unspecified, I10 - Essential (primary) hypertension, Z98.84 - Bariatric surgery status C Reactive Protein Today E66.9 - Obesity, unspecified, I10 - Essential (primary) hypertension, Z98.84 - Bariatric surgery status Vitamin B1 Today E66.9 - Obesity, unspecified, I10 - Essential (primary) hypertension, Z98.84 - Bariatric surgery status Vitamin A Today E66.9 - Obesity, unspecified, I10 - Essential (primary) hy pertension, Z98.84 - Bariatric surgery status Ferritin Today E66.9 - Obesity, unspecified, I10 - Essential (primary) hypertension, Z98.84 - Bariatric surgery status Insulin Today E66.9 - Obesity, unspecified, I10 - Essential (primary) hypertension, Z98.84 - Bariatric surgery status Hemoglobin A1c Today E66.9 - Obesity, unspecified, I10 - Essential (primary) hypertension, Z98.84 - Bariatric surgery status Complete Blood Count Auto Diff Today E66.9 - Obesity, unspecified, I10 - Essential (primary) hypertension, Z98.84 - Bariatric surgery status IRON PROFILE Today E66.9 - Obesity, unspecified, I10 - Essential (primary) hypertension, Z98.84 - Bariatric surgery status Comprehensive Met. Panel Today E66.9 - Obesity, unspecified, I10 - Essential (primary) hypertension, Z98.84 - Bariatric surgery status Vitamin B12 and Folate Today E66.9 - Obesity, unspecified, I10 - Essential (primary) hypertension, Z98.84 - Bariatric surgery status Zinc Today E66.9 - Obesity, unspecified, I10 - Essential (primary) hypertension, Z.84 - Bariatric surgery status TSH reflex Free T4 Today E66.9 - Obesity, unspecified, I10 - Essential (primary) hypertension, Z98.84 - Bariatric surgery status Vitamin D 25-OH Total Today E66.9 - Obesity, unspecified, I10 - Essential (primary) hypertension, Z98.84 - Bariatric surgery status Telehealth Telehealth Location of provider rendering services: practice address Location of patient: address on file Patient Identification confirmed using: Name, : Yes Telehealth method: video Patient verbally consented to treatment: Yes Patient verbally consented to billing insurance company: Yes Patient informed of any privacy concerns related to visit: Yes Coding Level of Care Code Tele Est Pt Level 4 (38049) Diagnoses Obesity E66.9 S/P laparoscopic sleeve gastrectomy Z.84 HTN (hypertension), benign I10
[2023-01-21 10:33] VITALS: BMI 33.6
== END 2023-01-21 10:54 | disposition home or self-care (01) ==
LOC: HO.HBS 10:47
PROVIDERS: PCP Student in an Organized Health Care Education/Training Program; Visit Provider Physician Assistant
DX: E66.9 Obesity, unspecified (principal); Z98.84 Bariatric surgery status; I10 Essential (primary) hypertension
CPT/HCPCS: 99214

== ENCOUNTER → 2023-01-21 10:30 | Outpatient (BNVA) | payer OTHER, SELFPAY | PROVIDERS: PCP Student in an Organized Health Care Education/Training Program; Visit Provider Physician Assistant | DX: E66.9 Obesity, unspecified (principal); Z98.84 Bariatric surgery status; I10 Essential (primary) hypertension ==